=== PATIENT | female | born 1960 | race Caucasian/White ===

== ENCOUNTER 2017-12-08 19:48 | Emergency (ER) | payer OTHER ==
[~2017-12-08] VITALS: Ht 167.6 cm; Wt 109.3 kg
[2017-12-08 19:51] VITALS: BP 135/81
[2017-12-08] MEDS ORDERED: ALBUTEROL/IPRATROPIUM 2.5MG/0.5MG, 3 ML NPPB PRN (20:30)
[2017-12-08 20:36] LABS: BASOPHILS # (AUTO) 0.07 x10^3/uL (0-0.1); BASOPHILS % (AUTO) 1 % (0-1); EOSINOPHILS # (AUTO) 0.14 x10^3/uL (0-0.4); EOSINOPHILS % (AUTO) 2 % (1-7); LYMPHOCYTES % (AUTO) 45 % (22-44); MD NO; MEAN CORPUSCULAR HEMOGLOBIN 28.4 pg (27.0-34.8); MEAN CORPUSCULAR HGB CONC 33.5 g/dL (32.4-35.8); MEAN CORPUSCULAR VOLUME 84.9 fL (80-100); MEAN PLATELET VOLUME 7.8 fL (7.4-10.4); MONOCYTES # (AUTO) 0.59 x10^3/uL (0.2-0.8); MONOCYTES % (AUTO) 7 % (2-9); NEUTROPHILS % (AUTO) 45 % (42-75); PLATELET COUNT 256 x10^3/uL (130-400); RED BLOOD COUNT 5.29 x10^6/uL (3.82-5.3); RED CELL DISTRIBUTION WIDTH 13.5 % (9.6-15.2)
[2017-12-08 20:46] LABS: ANION GAP 10 mmol/L (5-15); CALCIUM 8.6 mg/dL (8.5-10.1); CHLORIDE 102 mmol/L (98-107); CREATININE 1.08 mg/dL (0.55-1.02)
[2017-12-08 20:50] LABS: TROPONIN I < 0.015 ng/mL (0.000-0.045)
[2017-12-08] MEDS ORDERED: POTASSIUM CHLORIDE 20 MEQ TAB.ER.PRT PO ONE (21:00)
[2017-12-08] MEDS ORDERED: POTASSIUM CHLORIDE 20 MEQ TAB.ER.PRT ONE (21:02)
== END 2017-12-08 22:01 | disposition home or self-care (01) ==
LOC: ED 21:00
DX: J98.01 Acute bronchospasm (principal); Z87.891 Personal history of nicotine dependence
CPT/HCPCS: 36415; 71046; 80048; 82040; 83605; 83880; 84484; 85025; 93005; 94640; 99285; J7512; J7620

== ENCOUNTER → 2020-04-14 | Outpatient (CLI) | payer OTHER ==
[~2020-04-14] MED LIST: FENTANYL PF 100 MCG/2ML ONE; MIDAZOLAM 1 MG/ML, 5ML ONE
== END | disposition home or self-care (01) ==
LOC: RAD 08:05
PROVIDERS: ATTEND Specialist
DX: M35.00 Sjogren syndrome, unspecified (principal); M15.1 Heberden's nodes (with arthropathy); M15.2 Bouchard's nodes (with arthropathy); M79.7 Fibromyalgia; G47.33 Obstructive sleep apnea (adult) (pediatric); E66.9 Obesity, unspecified; F41.9 Anxiety disorder, unspecified; Z90.710 Acquired absence of both cervix and uterus; Z98.890 Other specified postprocedural states; Z79.899 Other long term (current) drug therapy; Z87.891 Personal history of nicotine dependence; Z82.49 Family history of ischemic heart disease and other diseases of the circulatory system; Z83.3 Family history of diabetes mellitus
CPT/HCPCS: 72148; 99156; 99157; J2250; J3010

== ENCOUNTER 2020-09-18 19:05 | Emergency (ER) | payer OTHER ==
[~2020-09-18] VITALS: Ht 170.2 cm; Wt 112.8 kg
--- NOTE | 2020-09-18 21:24 | NUR ---
[employer] CHIEF: PT TO ROOM AT THIS TIME.
--- NOTE | 2020-09-18 21:29 | NUR ---
PATIENT WALKED BACK FROM LOBBY WITH CHIEF C/O COUGH AND LOSS OF APPETTITE. PATIENT STATES HER SPOUSE TESTED POSITIVE FOR COVID TODAY. PATIENT C/O BODY ACHES, DIARRHEA AND VOMITING. PATIENT STATES SYMPTOMS HAVE BEEN PROGRESSIVELY GETTING WORSE X3 DAYS. NO SIGNS OF ACUTE DISTRESS, CONNECTED TO VITALS MACHINE, CALL LIGHT WITHIN REACH.
--- NOTE | 2020-09-18 22:05 | NUR ---
ER PROVIDER AT BEDSIDE FOR EVALUATION.
--- NOTE | 2020-09-18 22:47 | NUR ---
WARM BLANKET PROVIDED TO PATIENT, NO SIGNS OF ACUTE DISTRESS, CONNECTED TO RANCH RIDER, CALL LIGHT WITHIN REACH.
[2020-09-18 23:11] VITALS: BP 140/61
[2020-09-18 23:22] LABS: BASOPHILS % (AUTO) 1 % (0-1); EOSINOPHILS % (AUTO) 1 % (1-7); LYMPHOCYTES % (AUTO) 26 % (22-44); MEAN CORPUSCULAR HEMOGLOBIN 28.4 pg (27.0-34.8); MEAN CORPUSCULAR HGB CONC 33.5 g/dL (32.4-35.8); MEAN PLATELET VOLUME 7.7 fL (7.4-10.4); MONOCYTES % (AUTO) 10 % (2-9); NEUTROPHILS % (AUTO) 63 % (42-75); PLATELET COUNT 197 x10^3/uL (130-400); RED BLOOD COUNT 5.63 x10^6/uL (3.82-5.3); RED CELL DISTRIBUTION WIDTH 13.7 % (9.6-15.2)
[2020-09-18 23:24] LABS: MD NO
--- NOTE | 2020-09-18 23:33 | NUR ---
Patient given discharge instructions and prescription and they have confirmed that they understand the instructions. All patient belongings gathered and taken with patient. Patient in stable condition ambulatory with steady gait from ED to private vehicle.
[2020-09-18 23:35] LABS: ANION GAP 3 mmol/L (5-15); CALCIUM 8.9 mg/dL (8.5-10.1); CHLORIDE 103 mmol/L (98-107); CREATININE 1.02 mg/dL (0.55-1.02)
[2020-09-18 23:40] LABS: TROPONIN I < 0.015 ng/mL (0.000-0.045)
== END 2020-09-18 23:34 | disposition home or self-care (01) ==
LOC: ED 23:14
DX: U07.1 COVID-19 (principal); R07.89 Other chest pain; R05 Cough; R09.81 Nasal congestion; R06.02 Shortness of breath; R51.9 Headache, unspecified; R11.0 Nausea; R19.7 Diarrhea, unspecified; R00.0 Tachycardia, unspecified; M79.10 Myalgia, unspecified site; Z87.891 Personal history of nicotine dependence
CPT/HCPCS: 71045; 80048; 82040; 84484; 85025; 87635; 93005; 99285

== ENCOUNTER 2020-09-25 12:21 | Inpatient (IN) | payer OTHER ==
[~2020-09-25] VITALS: Ht 170.2 cm; Wt 108.6 kg
--- NOTE | 2020-09-25 12:47 | NUR ---
PATIENT WALKED BACK FROM TRIAGE WITH CHIEF C/O INCREASED SOB. PATIENT TESTED POSITIVE FOR COVID LAST MONDAY. PATIENT REPORTS N/V/D, FEVER, COUGH AND STOREY. PATIENT STATES HER SOB HAS BEEN GETTING WORSE, SHE TRIED USING NEBULIZER AT HOME BUT RAN OUT OF MEDICINE. NO SIGNS OF ACUTE DISTRESS, CONNECTED TO REFERENCE SERVICES HEAD, CALL LIGHT WITHIN REACH.
[2020-09-25] MEDS ORDERED: PREG50CA PO (13:39)
[2020-09-25] MEDS ORDERED: ESTR0.45 PO (13:39)
[2020-09-25] MEDS ORDERED: BUPR300T94 PO (13:39)
[2020-09-25] MEDS ORDERED: OMEP40CA42 PO (13:39)
[2020-09-25] MEDS ORDERED: NORT10CA PO (13:39)
[2020-09-25] MEDS ORDERED: MELO7.5T31 PO (13:39)
[2020-09-25 13:55] LABS: ALANINE AMINOTRANSFERASE 50 U/L (12-78); ALBUMIN 3.7 g/dL (3.4-5.0); ANION GAP 9 mmol/L (5-15); CALCIUM 8.7 mg/dL (8.5-10.1); CHLORIDE 108 mmol/L (98-107); CREATININE 1.04 mg/dL (0.55-1.02)
[2020-09-25 13:56] LABS: BASOPHILS % (AUTO) 1 % (0-1); EOSINOPHILS % (AUTO) 1 % (1-7); LYMPHOCYTES % (AUTO) 30 % (22-44); MEAN CORPUSCULAR HEMOGLOBIN 28.4 pg (27.0-34.8); MEAN CORPUSCULAR HGB CONC 33.3 g/dL (32.4-35.8); MEAN PLATELET VOLUME 8.4 fL (7.4-10.4); MONOCYTES % (AUTO) 6 % (2-9); NEUTROPHILS % (AUTO) 63 % (42-75); PLATELET COUNT 175 x10^3/uL (130-400); RED CELL DISTRIBUTION WIDTH 13.6 % (9.6-15.2)
[2020-09-25 14:01] LABS: ALKALINE PHOSPHATASE 131 U/L (45-117); BILIRUBIN,TOTAL 0.5 mg/dL (0.2-1.0); TOTAL PROTEIN 7.8 g/dL (6.4-8.2)
[2020-09-25 14:03] LABS: MD NO
[2020-09-25 14:05] LABS: D-DIMER (DIC) 0.35 ug/mlFEU (0.00-0.52); PROTIME 10.6 Seconds (9.6-11.5)
[2020-09-25] MEDS ORDERED: DEXAMETHASONE 4 MG/ML, 1ML IVPush ONE (14:30)
[2020-09-25] MEDS ORDERED: DEXAMETHASONE 4 MG/ML, 5ML ONE (14:56)
--- NOTE | 2020-09-25 15:07 | NUR ---
[facility] AT BEDSIDE TO DISCUSS POC.
[2020-09-25] MEDS ORDERED: GUAIFENESIN/DM 200-20MG, 10ML UDC PO PRN (16:00)
[2020-09-25] MEDS ORDERED: IBUPROFEN 600 MG TABLET PO PRN (16:00)
[2020-09-25] MEDS ORDERED: ENALAPRILAT 1.25 MG/ML, 2ML IVPush PRN (16:00)
[2020-09-25] MEDS: PREGABALIN 25 MG CAPSULE PO SCH ×2 (16:00→22:15)
[2020-09-25] MEDS ORDERED: LABETALOL 5MG/ML, 20ML IVPush PRN (16:00)
[2020-09-25] MEDS ORDERED: BUTALB/APAP/CAFFEINE 50MG/325MG/40MG PO PRN (16:00)
[2020-09-25] MEDS ORDERED: BACLOFEN 10 MG TABLET PO PRN (16:00)
[2020-09-25] MEDS ORDERED: ASCORBIC ACID 500 MG TABLET ONE (16:28)
[2020-09-25] MEDS: ENOXAPARIN 30 MG/0.3 ML SQ SCH (16:47)
[2020-09-25] MEDS: ASCORBIC ACID 500 MG TABLET PO SCH (16:47)
--- NOTE | 2020-09-25 17:19 | NUR ---
BREAK RN: PT RESTING IN ROOM. NO ACUTE DISTRESS NOTED. CALL LIGHT IN PLACE. WILL CONTINUE TO MONITOR WHILE PRIMARY RN IS ON BREAK.
--- NOTE | 2020-09-25 17:37 | NUR ---
REPORT GIVEN TO DEVAN LANE
--- NOTE | 2020-09-25 18:59 | NUR ---
PATIENT SITTING IN GURNEY WATCHING TV, NO SIGNS OF ACUTE DISTRESS, CONNECTED TO GLUING MACHINE OPERATOR AUTOMATIC, SIDE RAILS UP X2, CALL LIGHT WITHIN REACH.
--- NOTE | 2020-09-25 19:03 | NUR ---
HOSPITAL BED REQUESTED.
--- NOTE | 2020-09-25 19:27 | NUR ---
PATIENT TRANSFERRED TO HOSPITAL BED.
--- NOTE | 2020-09-25 20:26 | NUR ---
REPORT CALLED TO [facility] FOR TRANSFER OF PATIENT CARE.
[2020-09-25 21:30] VITALS: BP 127/77
[2020-09-25] MEDS: MELATONIN 5 MG TABLET PO SCH (22:15)
[2020-09-25] MEDS: BUPROPION SR 150 MG TABLET PO SCH (22:16)
[2020-09-26 01:04] VITALS: BP 132/79
[2020-09-26] MEDS: PANTOPRAZOLE 40MG TABLET PO SCH (06:12)
[2020-09-26] MEDS: ENOXAPARIN 30 MG/0.3 ML SQ SCH ×2 (06:13→15:54)
[2020-09-26 06:29] LABS: BASOPHILS % (AUTO) 1 % (0-1); EOSINOPHILS % (AUTO) 0 % (1-7); LYMPHOCYTES % (AUTO) 24 % (22-44); MEAN CORPUSCULAR HEMOGLOBIN 28.3 pg (27.0-34.8); MEAN CORPUSCULAR HGB CONC 33.5 g/dL (32.4-35.8); MEAN PLATELET VOLUME 8.3 fL (7.4-10.4); MONOCYTES % (AUTO) 6 % (2-9); NEUTROPHILS % (AUTO) 69 % (42-75); PLATELET COUNT 178 x10^3/uL (130-400); RED BLOOD COUNT 5.55 x10^6/uL (3.82-5.3); RED CELL DISTRIBUTION WIDTH 13.4 % (9.6-15.2)
[2020-09-26 06:31] LABS: MD NO
[2020-09-26 06:39] LABS: ALBUMIN 3.6 g/dL (3.4-5.0); ANION GAP 7 mmol/L (5-15); CALCIUM 9.6 mg/dL (8.5-10.1); CHLORIDE 108 mmol/L (98-107)
[2020-09-26 06:44] LABS: ALANINE AMINOTRANSFERASE 43 U/L (12-78); ALKALINE PHOSPHATASE 123 U/L (45-117); BILIRUBIN,TOTAL 0.4 mg/dL (0.2-1.0); TOTAL PROTEIN 7.5 g/dL (6.4-8.2)
[2020-09-26 07:23] VITALS: BP 121/78
[2020-09-26] MEDS: FLUTICASONE/VILANTEROL 100-25MCG/INH INH SCH (07:57)
[2020-09-26] MEDS: PREGABALIN 25 MG CAPSULE PO SCH ×3 (07:58→21:13)
[2020-09-26] MEDS: ASCORBIC ACID 500 MG TABLET PO SCH ×2 (07:58→15:55)
[2020-09-26] MEDS: MULTIVITS,STRESS FORMULA 1 TABLET PO SCH (07:58)
[2020-09-26] MEDS: SENNA/DOCUSATE TABLET PO SCH (07:59)
[2020-09-26] MEDS: ZINC SULFATE 220 MG CAPSULE PO SCH (07:59)
[2020-09-26] MEDS: BUPROPION SR 150 MG TABLET PO SCH ×2 (07:59→21:13)
[2020-09-26] MEDS: DEXAMETHASONE 4 MG TABLET PO SCH (08:01)
[2020-09-26] MEDS: CHOLECALCIFEROL 5,000u TAB PO SCH (08:02)
[2020-09-26 13:28] VITALS: BP 144/77
[2020-09-26 19:10] VITALS: BP 124/70
[2020-09-26] MEDS: MELATONIN 5 MG TABLET PO SCH (21:13)
[2020-09-27 00:09] VITALS: BP 111/79
[2020-09-27] MEDS: PANTOPRAZOLE 40MG TABLET PO SCH (05:56)
[2020-09-27] MEDS: ENOXAPARIN 30 MG/0.3 ML SQ SCH (05:56)
[2020-09-27 06:57] VITALS: BP 126/74
[2020-09-27] MEDS: SENNA/DOCUSATE TABLET PO SCH (09:00)
[2020-09-27] MEDS: DEXAMETHASONE 4 MG TABLET PO SCH (09:00)
[2020-09-27] MEDS: BUPROPION SR 150 MG TABLET PO SCH (09:21)
[2020-09-27] MEDS: ASCORBIC ACID 500 MG TABLET PO SCH (09:21)
[2020-09-27] MEDS: PREGABALIN 25 MG CAPSULE PO SCH (09:21)
[2020-09-27] MEDS: CHOLECALCIFEROL 5,000u TAB PO SCH (09:21)
[2020-09-27] MEDS: MULTIVITS,STRESS FORMULA 1 TABLET PO SCH (09:21)
[2020-09-27] MEDS: FLUTICASONE/VILANTEROL 100-25MCG/INH INH SCH (09:22)
[2020-09-27] MEDS: ZINC SULFATE 220 MG CAPSULE PO SCH (09:22)
[2020-09-27 12:30] VITALS: BP 120/72
[2020-09-27] MEDS ORDERED: FLUT1AER INH (12:43)
[2020-09-27] MEDS ORDERED: ZINC220C7 PO (12:43)
[2020-09-27] MEDS ORDERED: CHOL500045 PO (12:43)
[2020-09-27] MEDS ORDERED: ASCO500T9 PO (12:43)
[2020-09-27] MEDS ORDERED: DEXA4TAB66 PO (12:43)
[2020-09-27] MEDS ORDERED: MELA5TAB14 PO (12:43)
== END 2020-09-27 14:20 | disposition home or self-care (01) | DRG 177 ==
LOC: ED 13:17 → EDIP 14:19 → 4WST 20:48
PROVIDERS: ADMIT Hospitalist; ATTEND Family Medicine
DX: U07.1 COVID-19 (principal); J96.91 Respiratory failure, unspecified with hypoxia; E66.01 Morbid (severe) obesity due to excess calories; F41.1 Generalized anxiety disorder; K21.9 Gastro-esophageal reflux disease without esophagitis; M35.00 Sjogren syndrome, unspecified; M79.7 Fibromyalgia; Z87.891 Personal history of nicotine dependence; Z90.710 Acquired absence of both cervix and uterus; Z68.37 Body mass index [BMI] 37.0-37.9, adult; Z79.899 Other long term (current) drug therapy; Z56.0 Unemployment, unspecified
CPT/HCPCS: 36415; 71045; 80053; 82728; 83605; 83615; 83735; 84145; 85025; 85049; 85379; 85384; 85610; 85730; 86140; 87040; 93005; 99285; G0378; J1100; J1650

== ENCOUNTER → 2021-04-19 | Outpatient (CLI) | payer OTHER ==
[~2021-04-19] MED LIST changes: +ASCO500T9 PO; +BUPR300T94 PO; +CHOL500045 PO; +DEXA4TAB66 PO; +ESTR0.45 PO; -FENTANYL PF 100 MCG/2ML ONE; +FLUT1AER INH; +MELA5TAB14 PO; +MELO7.5T31 PO; -MIDAZOLAM 1 MG/ML, 5ML ONE; +NORT10CA PO; +OMEP40CA8 PO; +PREG50CA PO; +ZINC220C7 PO
== END | disposition home or self-care (01) ==
LOC: CFH 06:51
PROVIDERS: ATTEND Family Medicine
DX: Z12.31 Encounter for screening mammogram for malignant neoplasm of breast (principal); E04.1 Nontoxic single thyroid nodule
CPT/HCPCS: 76536; 77063; 77067